=== PATIENT | female | born 1980 | race Caucasian/White ===

== ENCOUNTER 2019-08-23 19:36 | Emergency (ER) | payer SELFPAY ==
[~2019-08-23] VITALS: Ht 167.6 cm; Wt 73.3 kg
[~2019-08-23 19:36] MED LIST: CEPH-507 PO; HYDR-4226 PO; SULF1TAB35 PO
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
[2019-08-23] MEDS ORDERED: RX-HYDROCODONE/APAP 5/325 MG #4 TAB PK PO ONE (20:50)
[2019-08-23] MEDS ORDERED: BACITRACIN OINTMENT 28 GM TUBE ONE (20:51)
[2019-08-23] MEDS ORDERED: BACITRACIN OINTMENT 28 GM TUBE TOP STA (20:56)
[2019-08-23] MEDS ORDERED: RX-HYDROCODONE/APAP 5/325 MG #4 TAB PK PO PRN (21:00)
[2019-08-23 21:03] VITALS: BP 100/65
== END 2019-08-23 21:03 | disposition home or self-care (01) ==
LOC: EDUNIT# 19:36 → ER FS 19:39
DX: T20.19XA Burn of first degree of multiple sites of head, face, and neck, initial encounter (principal); S01.131A Puncture wound without foreign body of right eyelid and periocular area, initial encounter; T31.0 Burns involving less than 10% of body surface; F41.9 Anxiety disorder, unspecified; R40.2142 Coma scale, eyes open, spontaneous, at arrival to emergency department; R40.2252 Coma scale, best verbal response, oriented, at arrival to emergency department; R40.2362 Coma scale, best motor response, obeys commands, at arrival to emergency department; X13.1XXA Other contact with steam and other hot vapors, initial encounter; X15.8XXA Contact with other hot household appliances, initial encounter
CPT/HCPCS: 99282

== ENCOUNTER 2022-03-24 01:36 | Emergency (ER) | payer SELFPAY ==
[~2022-03-24 01:36] MED LIST changes: -SULF1TAB35 PO; +SULF1TAB38 PO
[2022-03-24 02:07] VITALS: BP 131/95
[2022-03-24 02:08] LABS: BILIRUBIN,URINE NEGATIVE (NEGATIVE); CLARITY,URINE CLEAR; COLOR,URINE YELLOW; GLUCOSE, URINE (UA) NEGATIVE (NEGATIVE); KETONES,URINE NEGATIVE (NEGATIVE); LEUKOCYTE ESTERASE ,URINE 1+ (NEGATIVE); NITRITE,URINE NEGATIVE (NEGATIVE); PH,URINE 5.5 (5-9); PROTEIN,URINE NEGATIVE (NEGATIVE)
--- NOTE | 2022-03-24 02:14 | ED GU-Female ---
General Chief Complaint: Abdominal/GI Problems Stated Complaint: POSS KIDNEY INFECTION Nursing Triage Note: PT PRESENTS AND REPORTS URINARY SYMTOMS [id number]. PT STATED "MARSHA BEEN HAVING THIS ISSUE FOR SOMETHING LIKE 6 YEARS NOW. I FEEL LIKE I HAVE TO PEE ALL THE TIME, SOMETIMES IT PATRICK. AND MY RIGHT LOWER BACK WHERE MY KIDNEY IS AT REALLY HURTS". PT REPORTS BEING SEEN BY UROLOGY "A LONG TIME AGO". PT DENIES N/V/D, DENIES FEVERS Source: patient Exam Limitations: no limitations History of Present Illness Date Seen by Provider: Mar 24, 2022 Time Seen by Provider: 01:38 Initial Comments 41-year-old female with past medical history of frequent UTIs coming in due to concern she is having a UTI. She says its been going on for roughly 6 years. Last time she was on antibiotics was roughly 2 months ago, started with Bactrim, finished with Macrobid after the cultures came back. She says she is having urinary frequency, sometimes it patrick. She is having right lower back pain which is pretty typical for her. Denies any fever, nausea, vomiting, diarrhea, weakness, numbness, chest pain, abdominal pain, shortness of breath, or any other concerns. She gets most of her care at [facility]. Has not had a period in over 2 years, and she says she is postmenopausal at an early age. Allergies and Home Medications Allergies Coded Allergies: No Known Drug Allergies (Unverified , 12/10/11) Patient Home Medication List Home Medication List Reviewed: Yes Cephalexin (Keflex) 500 Mg Capsule, 1,000 MG PO BID Prescribed by: MATTHEW MADDOX on 05/08/152299 Hydrocodone/Acetaminophen (Hydrocodone/Acetaminophen 5 MG/325 MG TAB) 1 Each Tablet, 1 EACH PO Q4H PRN for PAIN Prescribed by: AZIZA ENCARNACION on 04/08/161926 Sulfamethoxazole/Trimethoprim (Bactrim Ds Tablet) 1 Each Tablet, 1 EACH PO BID Prescribed by: MATTHEW MADDOX on 05/08/152299 Review of Systems Review of Systems Constitutional: No fever EENTM: No blurred vision Respiratory: No cough Cardiovascular: No chest pain Gastrointestinal: no symptoms reported Genitourinary: burning, flank pain Musculoskeletal: no symptoms reported Skin: no symptoms reported Psychiatric/Neurological: No Symptoms Reported Endocrine: No Symptoms Reported Hematologic/Lymphatic: No Symptoms Reported All Other Systemes Reviewed Negative Unless Noted: Yes Past Azgtzdg-Ywbbmj-Bokqny Hx Patient Social History Tobacco Use?: Yes Smoking Status: Current Everyday Smoker Substance use?: Yes Additional substance use comme: "ALL KINDS" WAS STATED BY PT Substance frequency: Daily Alcohol Use?: Yes Alcohol Frequency: Daily Pt feels they are or have been: No Immunizations Up To Date Tetanus Booster (TDap): More than 5yrs Influenza Vaccine Up-to-Date: No; Not Current First/Initial COVID19 Vaccinat: UNKNOWN DATE Second COVID19 Vaccination Mohsen: UNKNOWN DATE 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 0.0oz. 54.025200jk; 26.00 BMI Method:Stated General Appearance: WD/WN, no apparent distress HEENT: PERRL/EOMI, normal ENT inspection, pharynx normal Neck: non-tender, full range of motion, supple, normal inspection Cardiovascular: regular rate, rhythm, no edema, no murmur Respiratory: chest non-tender, lungs clear, normal breath sounds, no respiratory distress, no accessory muscle use Gastrointestinal: normal bowel sounds, non tender, soft; No distended, No guarding, No rebound Back: normal inspection, no CVA tenderness Extremities: normal range of motion, non-tender, normal inspection, no pedal edema, no calf tenderness, normal capillary refill Neurologic/Psychiatric: no motor/sensory deficits, alert, normal mood/affect Skin: normal color, warm/dry Lymphatic: no adenopathy Progress/Results/Core Measures Suspected Sepsis SIRS Temperature: Pulse: 85 Respiratory Rate: 18 Blood Pressure 131 /95 Mean: 107 Results/Orders Lab Results Laboratory Tests Test 03/24/22 02:05 Range/Units Urine Color YELLOW Urine Clarity CLEAR Urine pH 5.5 5-9 Urine Specific [place] 1.020 1.016-1.022 Urine Protein NEGATIVE NEGATIVE Urine Glucose (UA) NEGATIVE NEGATIVE Urine Ketones NEGATIVE NEGATIVE Urine Nitrite NEGATIVE NEGATIVE Urine Bilirubin NEGATIVE NEGATIVE Urine Urobilinogen 0.2 < = 1.0 MG/DL Urine Leukocyte Esterase 1+ H NEGATIVE Urine RBC (Auto) NEGATIVE NEGATIVE Urine RBC NONE /HPF Urine WBC 0-2 /HPF Urine Squamous Epithelial Cells 10-25 H /HPF Urine Crystals NONE /LPF Urine Bacteria FEW H /HPF Urine Casts NONE /LPF Urine Mucus LARGE H /LPF Urine Culture Indicated NO My Orders Orders - REMIGIO TREVINO MD Urine Bedside (03/24/22 01:39) Ua Culture If Indicated (03/24/22 01:39) Ketorolac Injection (Toradol Injection) (03/24/22 02:15) Acetaminophen Tablet (Tylenol Tablet) (03/24/22 02:15) Medications Given in ED Current Medications Medications Dose Ordered Sig/Padmaja Route Start Time Stop Time Status Last Admin Dose Admin Acetaminophen 1,000 mg ONCE ONCE PO 03/24/22 02:15 03/24/22 02:16 DC 03/24/22 02:26 1,000 MG Ketorolac Tromethamine 15 mg ONCE ONCE IM 03/24/22 02:15 03/24/22 02:16 DC 03/24/22 02:26 15 MG Vital Signs/I&O 03/24/22 03/24/22 02:07 02:43 Temp 36.4 Pulse 85 83 Resp 18 18 B/P (MAP) 131/95 (107) 117/90 Pulse Ox 99 98 O2 Delivery Room Air Capillary Refill : Blood Pressure Mean: 107 Progress Note : Progress Note 41-year-old female coming in with dysuria and flank pain. ABCs were intact and vitals were stable on presentation. She had no flank pain on my exam or abdominal pain. Urinalysis performed and is more equivocal given the significant mount of squamous epithelial cells in the sample. Given her symptoms we will go ahead and treat it. We will follow-up on the culture. Overall she is well-appearing and has good follow-up as an outpatient. She was sent home with strict return precautions Departure Impression Primary Impression: Cystitis Disposition: HOME, SELF-CARE Condition: Stable Departure-Patient Inst. Decision time for Depature: 02:53 Referrals: NO,LOCAL PHYSICIAN (PCP/Family) Primary Care Physician Patient Instructions: Acute Cystitis (DC) Add. Discharge Instructions: An antibiotic and another medicine was sent to help with your pain. The medicine could make you sleepy as it is a relaxer. Follow-up with your regular doctor if things are not improving. Otherwise I recommend taking ibuprofen and /or Tylenol for the pain. Scripts Cyclobenzaprine HCl (Cyclobenzaprine HCl) 10 Mg Tablet 10 MG PO Q8H PRN for SPASMS for 5 Days, #15 TAB Prov: REMIGIO TREVINO MD 03/24/22 Cefdinir (Cefdinir) 300 Mg Capsule 300 MG PO BID for 7 Days, #14 CAP 0 Refills Prov: REMIGIO TREVINO MD 03/24/22 Work/School Note: Work Release Form Date Seen in the Emergency Department: Mar 24, 2022 Return to Work: Mar 25, 2022 Restrictions: No Restrictions REMIGIO TREVINO MD Mar 24, 2022 02:14
[2022-03-24] MEDS ORDERED: KETOROLAC 30 MG/ML VIAL IM ONE (02:15)
[2022-03-24] MEDS ORDERED: ACETAMINOPHEN 500 MG TAB (TYLENOL) PO ONE (02:15)
[2022-03-24 02:17] LABS: BACTERIA,URINE FEW /HPF; WBC,URINE 0-2 /HPF
[2022-03-24] MEDS ORDERED: CEFD300C3 PO (02:56)
[2022-03-24] MEDS ORDERED: CYCL10TA25 PO (02:56)
== END 2022-03-24 03:00 | disposition home or self-care (01) ==
LOC: EDUNIT# 01:36 → ER 01:40
DX: N30.90 Cystitis, unspecified without hematuria (principal); F17.200 Nicotine dependence, unspecified, uncomplicated
CPT/HCPCS: 81000; 84703; 99284

== ENCOUNTER 2022-09-28 18:29 | Emergency (ER) | payer SELFPAY ==
[~2022-09-28] VITALS: Ht 162.6 cm; Wt 72.6 kg
[~2022-09-28 18:29] MED LIST changes: +CEFD300C3 PO; +CYCL10TA25 PO
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
[2022-09-28 18:45] LABS: BASOPHILS % (AUTO) 0 % (0-10); EOSINOPHILS # (AUTO) 0.1 10^3/uL (0.0-0.3); EOSINOPHILS % (AUTO) 1 % (0-10); HEMATOCRIT 41 % (35-52); LYMPHOCYTES # (AUTO) 3.4 10^3/uL (1.0-4.0); LYMPHOCYTES % (AUTO) 38 % (12-44); MEAN CORPUSCULAR HEMOGLOBIN 34 pg (25-34); MEAN CORPUSCULAR HGB CONC 35 g/dL (32-36); MEAN CORPUSCULAR VOLUME 97 fL (80-99); MEAN PLATELET VOLUME 9.6 fL (9.0-12.2); MONOCYTES # (AUTO) 0.5 10^3/uL (0.0-1.0); MONOCYTES % (AUTO) 5 % (0-12); NEUTROPHILS # (AUTO) 4.9 10^3/uL (1.8-7.8); NEUTROPHILS % (AUTO) 55 % (42-75); PLATELET COUNT 268 10^3/uL (130-400)
[2022-09-28] MEDS ORDERED: ASPIRIN 81 MG CHEW (CHILDREN'S ASA) PO ONE (19:00)
[2022-09-28 19:05] LABS: BILIRUBIN,URINE NEGATIVE (NEGATIVE); CLARITY,URINE SL CLOUDY; COLOR,URINE YELLOW; GLUCOSE, URINE (UA) NEGATIVE (NEGATIVE); KETONES,URINE TRACE (NEGATIVE); LEUKOCYTE ESTERASE ,URINE NEGATIVE (NEGATIVE); NITRITE,URINE POSITIVE (NEGATIVE); PH,URINE 6.5 (5-9); PROTEIN,URINE NEGATIVE (NEGATIVE)
--- NOTE | 2022-09-28 19:06 | Diagnostic Imaging Report ---
INDICATION: Chest pain EXAMINATION: Chest 09/28/2022 FINDINGS: The cardiomediastinal silhouette is unremarkable. The pulmonary vasculature is within normal limits. The lungs and pleural spaces are clear. IMPRESSION: No evidence of an acute cardiopulmonary process. Dictated by: Dictated on workstation # [id number]
[2022-09-28 19:15] LABS: BACTERIA,URINE LARGE /HPF; RBC,URINE 0-2 /HPF
[2022-09-28 19:16] LABS: AMPHETAMINE SCREEN, URINE POSITIVE (NEGATIVE); BENZODIAZEPINES SCREEN URINE NEGATIVE (NEGATIVE); CANNABINOID SCREEN, URINE POSITIVE (NEGATIVE); COCAINE SCREEN URINE NEGATIVE (NEGATIVE); HCG,QUALITATIVE URINE NEGATIVE (NEGATIVE)
[2022-09-28 19:17] LABS: BARBITURATE SCREEN URINE NEGATIVE (NEGATIVE); METHADONE STAT NEGATIVE (NEGATIVE); OPIATE SCREEN URINE NEGATIVE (NEGATIVE); OXYCODONE STAT NEGATIVE (NEGATIVE); PROPOXYPHENE STAT NEGATIVE (NEGATIVE); TRICYCLIC ANTIDEPRESSANTS SCRE NEGATIVE (NEGATIVE)
[2022-09-28 19:19] LABS: CREATININE SERUM 1.07 MG/DL (0.60-1.30); POTASSIUM 3.6 MMOL/L (3.6-5.0)
[2022-09-28 19:20] LABS: ALBUMIN 4.2 GM/DL (3.2-4.5); BILIRUBIN,TOTAL 0.3 MG/DL (0.1-1.0); CALCIUM 9.6 MG/DL (8.5-10.1); MAGNESIUM 2.1 MG/DL (1.6-2.4); TOTAL PROTEIN 7.1 GM/DL (6.4-8.2)
[2022-09-28 20:23] VITALS: BP 142/96
== END 2022-09-28 20:23 | disposition home or self-care (01) ==
LOC: EDUNIT# 18:29 → ER FS 18:32
DX: M94.0 Chondrocostal junction syndrome [Tietze] (principal); F10.10 Alcohol abuse, uncomplicated; F12.10 Cannabis abuse, uncomplicated; F15.90 Other stimulant use, unspecified, uncomplicated; Z91.410 Personal history of adult physical and sexual abuse
CPT/HCPCS: 36415; 71045; 80053; 80306; 81000; 83605; 83690; 83735; 84484; 84703 ×2; 85025; 87088; G0480; 80320; 93005